=== PATIENT | male | born 2000 | race African-American/Black ===

== ENCOUNTER 2024-11-30 09:23 | Emergency (ER) | payer OTHER ==
[~2024-11-30] VITALS: Ht 172.7 cm; Wt 66.9 kg
[2024-11-30 12:29] LABS: HEMATOCRIT 46.6 % (42.0-52.0); HEMOGLOBIN 14.7 g/dl (13.5-17.5); MEAN CORPUSCULAR HEMOGLOBIN 25.7 pg (27.0-33.0); MEAN CORPUSCULAR HGB CONC 31.5 g/dl (32.0-36.5); MEAN CORPUSCULAR VOLUME 81.6 fl (80.0-96.0); RED BLOOD COUNT 5.71 10^6/uL (4.30-6.10); WHITE BLOOD COUNT 15.6 10^3/uL (4.0-10.0)
[2024-11-30 12:31] LABS: PLATELET COUNT, AUTOMATED 187 10^3/uL (150-450)
[2024-11-30] MEDS: ONDANSETRON 4MG 2ML VIAL IV ONE (12:35)
[2024-11-30] MEDS: FAMOTIDINE 20MG/2ML VIAL IVP ONE (12:36)
[2024-11-30] MEDS: AMOXICILLIN 500 MG CAP PO ONE (12:50)
[2024-11-30 12:51] LABS: LIPASE 44 U/L (12-53)
[2024-11-30 12:53] LABS: ALBUMIN 3.8 G/DL (3.2-5.2); ALKALINE PHOSPHATASE 59 U/L (40-129); ALT/SGPT 19 U/L (7.0-40); AST/SGOT 17 U/L (<34); BILIRUBIN,DIRECT 0.2 MG/DL (<0.4); BILIRUBIN,TOTAL 0.5 MG/DL (0.3-1.2); BLOOD UREA NITROGEN 13 MG/DL (9-23); CALCIUM LEVEL 9.3 MG/DL (8.5-10.1); CARBON DIOXIDE LEVEL 27 MMOL/L (20-31); CHLORIDE LEVEL 102 MMOL/L (98-107); CREATININE FOR GFR 1.06 MG/DL (0.70-1.30); GLOMERULAR FILTRATION RATE > 90.0 (>60); GLUCOSE, FASTING 91 MG/DL (60-100); SODIUM LEVEL 138 MMOL/L (136-145); TOTAL PROTEIN 7.7 G/DL (5.7-8.2)
[2024-11-30 13:15] LABS: MONO SCRN NEGATIVE (NEGATIVE)
[2024-11-30 13:16] LABS: LYMPHOCYTES 14 % (16-44); MONOCYTES 7 % (0-5); NEUTROPHILS 77 % (28-66)
[2024-11-30 13:17] LABS: PLATELET ESTIMATE NORMAL (NORMAL)
[2024-11-30] MEDS ORDERED: AMOX500C PO (13:30)
[2024-11-30 13:35] VITALS: BP 117/75; TEMP 98.9; O2SAT 99
== END 2024-11-30 13:56 | disposition home or self-care (01) ==
LOC: M ED 09:23
DX: J02.0 Streptococcal pharyngitis (principal)
CPT/HCPCS: 80048; 80076; 83690; 85025; 86308; 87486; 87581; 87633; 87798; 87880; 96374; 96375; 99284; J1308; J2405